=== PATIENT | female | born 1950 | race Caucasian/White ===

== ENCOUNTER 2017-08-20 16:04 | Emergency (ER) | payer OTHER ==
[2017-08-20] MEDS ORDERED: Aspirin TAB* 325 MG PO ONE (16:50)
--- NOTE | 2017-08-20 18:01 | RAD ---
INDICATION: Wrist pain after a fall COMPARISON: None. TECHNIQUE: 3 views left wrist. REPORT: There is a partially comminuted fracture involving the distal left radius exhibiting a small degree of dorsal angulation as well as impaction. There is minimally displaced fracture of the left ulnar styloid. Remaining visualized bones are intact and appropriately aligned. IMPRESSION: Comminuted and minimally impacted fracture of the left distal radius as well as left ulnar styloid fracture.
--- NOTE | 2017-08-20 18:02 | RAD ---
INDICATION: Right knee pain after a fall COMPARISON: None TECHNIQUE: 4 view radiograph of the right knee. FINDINGS: The visualized bones are well-corticated and properly aligned. Degenerative changes of the right knee include narrowing of the medial and lateral compartment. Lateral view evaluation is limited due to extension of the knee but there is a moderate joint effusion. There is no acute fracture, dislocation or other focal bony abnormality. IMPRESSION: Moderate knee joint effusion without radiographically apparent acute fracture or dislocation. If the patient's symptoms persist, follow-up imaging is recommended.
[2017-08-20 18:05] VITALS: BP 163/67
--- NOTE | 2017-08-20 19:11 | UC ---
Minor Trauma HPI - HPI Summary HPI Summary: 66 yo female kicked by horse today in right knee fell and injured left wrist denies other injury - History of Current Complaint Chief Complaint: UCUpperExtremity Stated Complaint: WRIST & KNEE INJURIES FROM A FALL Time Seen by Provider: 08/20/17 17:38 Hx Obtained From: Patient Onset/Duration: Sudden Onset Onset Of Pain: Immediate Severity Initially: Moderate Severity Currently: Moderate Pain Intensity: 6 Pain Scale Used: 0-10 Numeric Mechanism Of Injury: Direct Blow, Fall From A Standing Position Aggravating Factor(s): Ambulation Associated Signs And Symptoms: Positive: Ecchymosis, Swelling - Allergies/Home Medications Allergies/Adverse Reactions: Allergies Allergy/AdvReac Type Severity Reaction Status Date / Time ANTIBIOTICS AdvReac Severe Nausea Uncoded 08/20/17 16:43 PMH/Surg Hx/FS Hx/Imm Hx Previously Healthy: Yes Cardiovascular History: Hypertension, Other - PROLONGED QT Other Cardiovascular History: prolonged QT - Surgical History Surgical History: None - Social History Alcohol Use: Occasionally Substance Use Type: None Smoking Status (MU): Never Smoked Tobacco Review of Systems Constitutional: Negative Skin: Bruising Eyes: Negative ENT: Negative Respiratory: Negative Cardiovascular: Negative Gastrointestinal: Negative Genitourinary: Negative Motor: Negative Neurovascular: Negative Musculoskeletal: Arthralgia Neurological: Negative Psychological: Negative Is Patient Immunocompromised?: No All Other Systems Reviewed And Are Negative: Yes Physical Exam Triage Information Reviewed: Yes Appearance: Well-Appearing, Well-Nourished Vital Signs: Initial Vital Signs Pulse 71 08/20/17 18:04 Resp 16 08/20/17 18:04 BP 163/67 08/20/17 18:04 Pulse Ox 97 08/20/17 18:04 Eyes: Positive: Conjunctiva Clear ENT: Positive: Hearing grossly normal, Uvula midline. Negative: Nasal congestion Neck exam: Normal Neck: Positive: Supple Respiratory: Positive: Lungs clear, Normal breath sounds, No respiratory distress Cardiovascular: Positive: RRR Musculoskeletal: Positive: Other: - sewe image Diagnostics - Radiology No standard instances Xray Interpretation: Positive (See Comments) - I suspect a lateral tibial plateau fracture with hemarthrosis Radiology Interpretation Completed By: ED Physician, Radiologist - fx distal left radius Minor Trauma Course/Dx - Course Course Of Treatment: D/W Dr. López- he requests pt get sent to ED for CT of right knee. he also requests true lateral XR of left wrist. Desires to be called when images takes. this was relayed to ED attending. to [facility] via EMS - Differential Dx/Diagnosis Provider Diagnoses: right knee injury-suspect lateral tibial plateau fracture. fracture left wrist- distal radius and ulnar styloid (closed). Prolonged QT syndrome Discharge - Discharge Plan Condition: Stable Disposition: TRANS HIGHER LVL OF CARE FAC Referrals: Savanna Stanley MD [Primary Care Provider] - Vikram López MD [Medical Doctor] - Images Front/Back of Body, Lg (Bucks): 1 - lg joint effusion. skin intact. tender lateral joint line 2 - swollen/tender radius
== END 2017-08-20 19:25 | disposition short-term general hospital (02) ==
LOC: UCEAST 16:04
DX: S52.502A Unspecified fracture of the lower end of left radius, initial encounter for closed fracture (principal); S52.612A Displaced fracture of left ulna styloid process, initial encounter for closed fracture; S89.91XA Unspecified injury of right lower leg, initial encounter; W55.12XA Struck by horse, initial encounter; Y93.9 Activity, unspecified; Y92.9 Unspecified place or not applicable; Y99.9 Unspecified external cause status; M25.461 Effusion, right knee
CPT/HCPCS: 99213; G0463

== ENCOUNTER 2017-08-20 19:33 | Emergency (ER) | payer OTHER ==
--- NOTE | 2017-08-20 21:23 | RAD ---
INDICATION: Splinting of complex distal left radius fracture COMPARISON: Same day wrist radiograph acquired at 1708 hours TECHNIQUE: 3 views left wrist acquired at 2020 hours. REPORT: Evaluation of the wrist bones are limited by overlying splint. Again seen is a comminuted minimally impacted and dorsally angulated distal left radius fracture. The remaining visualized bones appear to be intact and appropriately aligned. IMPRESSION: No significant change in distal left radius fracture status post splint placement.
--- NOTE | 2017-08-20 21:28 | RAD ---
INDICATION: Right knee pain after a fall from a horse. COMPARISON: Same day radiograph of the right knee that shows a moderate sized effusion. TECHNIQUE: Noncontrast CT examination of the right knee. Axial images were acquired and sagittal and coronal reformats were created and independently analyzed. FINDINGS: Depicted best on the coronal plane images is a partially comminuted right lateral tibial plateau fracture. The fractured portion of the tibial plateau is depressed approximately 4 mm (coronal image 31 of 69). On the sagittal plane images the fracture is oriented obliquely, superior at the posterior section and more inferior at the anterior section (image [id number]). There is a moderate pleural effusion. Within the limitations of a noncontrast CT examination the cruciate ligaments appear to be intact. There is mild induration of the surrounding subcutaneous fat. IMPRESSION: Partially comminuted lateral right tibial plateau fracture as described above.
[2017-08-20] MEDS ORDERED: traMADol TAB* 50 MG PO ONE (22:00)
[2017-08-20] MEDS ORDERED: Lidocaine 1% INJ* 10 MG/ML 30 ML SDV ONE (22:38)
[2017-08-21] MEDS ORDERED: traMADol TAB* 50 MG ONE (00:33)
[2017-08-21] MEDS ORDERED: Ibuprofen TAB* 400 MG ONE (00:33)
--- NOTE | 2017-08-21 00:35 | ED ---
Stephanie Corcoran SooYoung, scribed for Star Rios MD on 08/20/17 at 7 . Complex/Multi-Sys Presentation - HPI Summary HPI Summary: A 66 y/o F presents to ED referred from [facility] s/p fall onset approx 1530. Pt was walking her horse when it bolted. Pt fell hard to the ground and was kicked by the horse. She has an injury to her L wrist and R knee, the L wrist hurts more than her R knee. She denies any other injury. Pt was given 2 aspirin at [facility] and denies additional pain medication at bedside. - History Of Current Complaint Chief Complaint: EDExtremityLower Time Seen by Provider: 08/20/17 19:48 Hx Obtained From: Patient, Medical Records Onset/Duration: Sudden Onset, Lasting Hours - onset approx 1530, Still Present Timing: Constant Severity Currently: Moderate Severity Initially: Moderate Location: Pain At: - L wrist, R knee - Allergies/Home Medications Allergies/Adverse Reactions: Allergies Allergy/AdvReac Type Severity Reaction Status Date / Time ANTIBIOTICS AdvReac Severe Nausea Uncoded 08/20/17 20:10 PMH/Surg Hx/FS Hx/Imm Hx Previously Healthy: No Endocrine/Hematology History: Denies: Hx Diabetes Cardiovascular History: Denies: Hx Hypertension, Hx Pacemaker/ICD History: Denies: Hx Renal Disease Musculoskeletal History: Reports: Hx Osteoporosis Denies: Hx Rheumatoid Arthritis Sensory History: Denies: Hx Hearing Aid Psychiatric History: Denies: Hx Panic Disorder Infectious Disease History: No Infectious Disease History: Denies: Traveled Outside the [place] in Last 30 Days - Family History Known Family History: Negative: Diabetes - Social History Occupation: Employed Full-time Lives: With Family Alcohol Use: Occasionally Hx Substance Use: No Substance Use Type: Reports: None Hx Tobacco Use: No Smoking Status (MU): Never Smoked Tobacco Review of Systems Negative: Fever Positive: Other - pos: L wrist injury, R knee injury All Other Systems Reviewed And Are Negative: Yes Physical Exam - Summary Physical Exam Summary: VITAL SIGNS: Reviewed. GENERAL: Patient is a well-developed and nourished FEMALE who is lying comfortable in the stretcher. Patient is not in any acute respiratory distress. HEAD AND FACE: No signs of trauma. No ecchymosis, hematomas or skull depressions. No sinus tenderness. EYES: PERRLA, EOMI x 2, no injected conjunctiva, no nystagmus. EARS: Hearing grossly intact. Ear canals and tympanic membranes are within normal limits. MOUTH: Oropharynx is within normal limits. NECK: Supple, trachea is midline, no adenopathy, no JVD, no carotid bruit, no c- spine tenderness, neck with full ROM. CHEST: Symmetric, no tenderness at palpation LUNGS: Clear to auscultation bilaterally. No wheezing or crackles. CVS: Regular rate and rhythm, S1 and S2 present, no murmurs or gallops appreciated. ABDOMEN: Soft, non-tender. No signs of distention. No rebound, no guarding, and no masses palpated. Bowel sounds are normal. EXTREMITIES: Unable to examine. Pt has a knee immobilizer on her RLE and a sugar tong splint on her L wrist. NEURO: Alert and oriented x 3. No acute neurological deficits. Speech is normal and follows commands. SKIN: Dry and warm Triage Information Reviewed: Yes Vital Signs On Initial Exam: Initial Vitals Temp Pulse Resp BP Pulse Ox 99.1 F 80 16 151/71 99 08/20/17 19:45 08/20/17 19:45 08/20/17 19:45 08/20/17 19:45 08/20/17 19:45 Vital Signs Reviewed: Yes Diagnostics - Vital Signs Vital Signs Temp Pulse Resp BP Pulse Ox 08/20/17 19:45 99.1 F 80 16 151/71 99 - Laboratory Lab Statement: Any lab studies that have been ordered have been reviewed, and results considered in the medical decision making process. - Radiology L WRIST Xray Interpretation: No Acute Changes - IMPRESSION: No significant change in distal left radius fracture status post splint placement. ED physician has reviewed this radiology report and agrees. Radiology Interpretation Completed By: Radiologist L WRIST s/p reduction Xray Interpretation: Positive (See Comments) Radiology Interpretation Completed By: ED Physician - CT RLE CT Interpretation: Positive (See Comments) - IMPRESSION: Partially comminuted lateral right tibial plateau fracture as described above. ED physician has reviewed this radiology report and agrees. CT Interpretation Completed By: Radiologist Re-Evaluation - Re-Evaluation 1 Re-Evaluation Time: 00:18 Change: Improved Comment: Discussed results of XR s/p reduction by Dr. López. Discussed medication plan and plan for dispo. Pt voiced understanding. Complex Multi-Symp Course/Dx Course Of Treatment: A 66 y/o F presents to ED referred from [facility] s/p fall onset [employer]. Pt was walking her horse when it bolted. Pt fell hard to the ground and was kicked by the horse. She has an injury to her L wrist and R knee, the L wrist hurts more than her R knee. She denies any other injury. Pt was given 2 aspirin at [facility] and denies additional pain medication at bedside. Consulted with Dr. López who will see pt in ED. Dr. López reset pt's wrist. Wrist XR s /p reduction shows improved alignment. Discussed meds and plan for dispo with pt and at length. Pt voiced understanding. - Diagnoses Provider Diagnoses: Left distal wrist fracture, Tibial plateau fracture, right - Physician Notifications Discussed Care Of Patient With: Vikram López - Ortho Time Discussed With Above Provider: 20:56 Instructed by Provider To: Other - Will look at XR/CT and call back. Discharge - Discharge Plan Condition: Stable Disposition: HOME Patient Education Materials: Leg Fracture (ED), Crutch Instructions (ED), Wrist Fracture in Adults (ED) Referrals: Savanna Stanley MD [Primary Care Provider] - Vikram López MD [Medical Doctor] - 1 Week (Call to schedule an appt this week.) Additional Instructions: As we discussed, use the Alleve/Motrin for mild pain and Tramadol for more severe pain. Follow the instructions for each medication. Follow up with Dr. López, orthopedics, this week. Please return to the ED if you experience new or worsening symptoms. Consult Consult: 2126: Consult with Dr. López, ortho Will see pt in ED. 2235: Consult with Dr. López Provider evaluated pt and will set her wrist in ED, then pt can be dispo home. The documentation as recorded by the Stephanie villavicencio SooYoung accurately reflects the service I personally performed and the decisions made by me, Star Rios MD.
[2017-08-21] MEDS: traMADol TAB* 50 MG PO ONE ×2 (01:10→01:11)
[2017-08-21] MEDS: Ibuprofen TAB* 400 MG PO ONE (01:11)
[2017-08-21 01:15] VITALS: BP 135/69
--- NOTE | 2017-08-21 02:37 | CONS ---
CONSULTATION REPORT: DATE OF CONSULT: 08/20/17 REASON FOR CONSULT: Left wrist, right knee injuries. 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 The patient was walking her horse when the horse got spooked and ran forward suddenly. Both fell on to the ground and was then jostled by the horse, perhaps partially run over. The patient is not sure what caused her injures, the fall to the ground or being jostled by the horse. The patient had significant left wrist and right knee pain. The patient went to urgent care first today. X-rays demonstrated a left distal radius fracture. The patient was placed in a sugar-tong splint, left forearm. The patient had significant right knee pain. Radiologist read right knee x- rays as normal, but the urgent care physician on-call, Dr. Marquez, suspected fracture. I was called about the patient's injuries from urgent care. I reviewed imaging and I thought the patient had a right knee lateral tibial plateau fracture and a comminuted displaced left distal radius fracture. I recommended CT imaging for the right knee. The patient was transferred to the emergency department to obtain that CT imaging. The patient's right knee was placed in a knee immobilizer. The patient reports her pain had been 5/10, although became 7/10 recently when she hit her left wrist on a wheelchair. The patient is with her in the emergency department. The patient reports that she has been told that she has osteoporosis in the past. The patient takes vitamin D intermittently. She took Fosamax many years ago. The patient has no renal disease or diabetes mellitus. PAST MEDICAL HISTORY: Hypertension, long QT syndrome. PAST SURGICAL HISTORY: None. MEDICATIONS: 1. Aspirin. 2. Nasal spray for seasonal allergies, not otherwise specified. ALLERGIES: No known drug allergies, but the patient describes some nausea and vomiting with different antibiotics in the past. REVIEW OF SYSTEMS: The patient describes no headache, nausea, or vomiting currently. No chest pain, shortness of breath, or heart palpitations. No numbness or tingling. No other joint pain besides right knee and left wrist. The patient sustained no loss of consciousness or head trauma with her injury. PHYSICAL EXAMINATION: Vitals at 7:45 p.m. this evening were temperature 99.1 degrees Fahrenheit, pulse 80, blood pressure 151/71, respiratory rate 16, and 99 % on room air oxygen saturation. In no acute distress, alert and oriented, appropriate mood and affect, appropriate dress and hygiene, well coordinated right upper and left lower extremity. Gait was not assessed. Left upper extremity exam reveals soft tissue swelling about the left wrist. Tenderness to palpation in the distal radius. No open skin. No ecchymosis. Neurovascularly intact distally. No elbow tenderness to palpation or pain with elbow passive range of motion. Right knee exam shows mild soft tissue swelling about the knee and proximal lower leg. Tenderness to palpation of the lateral tibial plateau. The skin wrinkles nicely about the lateral and medial tibial plateau. Neurovascularly intact distally. IMAGING: I reviewed x-rays, 3 views of the left wrist, obtained in the emergency department and urgent care. They show a left distal radius fracture, comminuted, displaced, intraarticular. The primary fracture line appears to be transverse or oblique. There is significant angulation present there. There is an intraarticular fracture line with some minimal displacement running longitudinally with the ulnar corner of the distal radius fractured off. X-rays of the right knee from urgent care and CT of the right knee from the emergency department were reviewed. There is a Schatzker grade 2 lateral tibial plateau fracture. There is a split, but there is also a depression. I measured the depression to be as much as 6 to 7 mm. Area of depression is small , cross- sectionally. ASSESSMENT: 1. Left distal radius fracture, comminuted, displaced, intraarticular. 2. Right lateral tibial plateau fracture, Schatzker grade 2. PLAN/RECOMMENDATIONS: 1. I discussed at length with the patient and her nonoperative and operative treatment of these fractures. I discussed the recovery timeline for both nonoperative and operative treatment as well as the potential risks and complications of nonoperative and operative management. 2. The patient has had many questions and wants to gather as much information as possible, understandably. 3. Hematoma block followed by reduction of the left distal radius. Verbal consent, sterile technique, tolerated well. Procedure: I sterilely aspirated 15 cc of blood from the fracture site, main oblique fracture line. I then injected 7 cc of 1% lidocaine. I waited 5 minutes and then placed the left hand in Camb[place]ian finger traps. I then performed a reduction maneuver on the left distal radius. This clearly improved the deformity that had been present about the left distal radius. I next placed a sugar-tong splint with plaster and overwrapped it with an Bj bandage and the kept the patient in finger traps until fully hardened. 4. The patient will get x-rays of the left wrist status post closed reduction to assess quality of reduction at fracture line. 5. The patient was not interested in surgical management in the next 24 hours. The patient feels she has sufficient social support go home with her . 6. Nonweightbearing right lower extremity with the knee in the knee immobilizer at all times with the exception possibly of showering. Some flexion would be allowed if she is nonweightbearing. Nonweightbearing left upper extremity and the patient is to remain in the splint at all times and must stay dry. 7. The patient will follow up in clinic this week with me, with new x-rays of the right knee and the left wrist and to discuss nonoperative versus operative management. The patient knows that since she will be outside the 24-hour window that it will be best to wait at least 7 to 10 days for swelling to resolve to perform surgery as desired. [id number]/CPS #: [id number]
--- NOTE | 2017-08-21 07:50 | RAD ---
INDICATION: Traumatic fracture of the left wrist status post external reduction. COMPARISON: Comparison is made with prior x-ray studies of the left wrist from August 20, 2017. TECHNIQUE: 2 views of the left wrist were obtained. FINDINGS: The bones are visualized through a plaster cast limiting the bony detail. Again note is made of a comminuted intra-articular fracture of the distal radial metaphysis. The fracture fragments are slightly impacted. There appears be interval resolution of the previous dorsal angulation of the distal fragment relative the proximal fragment. There is also a fracture of the ulnar styloid process. IMPRESSION: 1. COMMINUTED, SLIGHTLY DISPLACED INTRA-ARTICULAR FRACTURE OF THE DISTAL RADIUS. 2. FRACTURE OF THE ULNAR STYLOID PROCESS.
== END 2017-08-21 01:11 | disposition home or self-care (01) ==
LOC: ED 19:33
DX: S62.102A Fracture of unspecified carpal bone, left wrist, initial encounter for closed fracture (principal); S82.141A Displaced bicondylar fracture of right tibia, initial encounter for closed fracture; W55.12XA Struck by horse, initial encounter; Y93.9 Activity, unspecified; Y92.9 Unspecified place or not applicable
CPT/HCPCS: 99283; A9270-GY